=== PATIENT | male | born 1970 | race Caucasian/White ===

== ENCOUNTER 2017-11-19 16:31 | Emergency (ER) | payer OTHER ==
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
[2017-11-19 17:44] VITALS: BP 117/69
== END 2017-11-19 17:44 | disposition home or self-care (01) ==
DX: S22.42XA Multiple fractures of ribs, left side, initial encounter for closed fracture (principal)